=== PATIENT | male | born 1940 | race Caucasian/White ===

== ENCOUNTER 2022-07-08 11:58 | Day surgery (SDC) | payer MEDICARE, OTHER ==
[2022-07-04 15:13] LABS: BASOPHILS # (AUTO) 0.1 X10'3 (0-0.2); BASOPHILS % (AUTO) 1.3 % (0-1); EOSINOPHILS # (AUTO) 0.3 X10'3 (0-0.9); EOSINOPHILS % (AUTO) 4.2 % (0-6); LYMPHOCYTES # (AUTO) 1.3 X10'3 (1.1-4.8); LYMPHOCYTES % (AUTO) 15.6 % (21-51); MEAN CORPUSCULAR HEMOGLOBIN 29.2 PG (27.0-31.0); MEAN CORPUSCULAR HGB CONC 32.8 g/dL (33.0-36.5); MEAN CORPUSCULAR VOLUME 89.1 FL (78-98); MEAN PLATELET VOLUME 6.3 FL (7.4-10.4); MONOCYTES # (AUTO) 0.8 X10'3 (0-0.9); MONOCYTES % (AUTO) 10.2 % (2-12); NEUTROPHILS # (AUTO) 5.7 X10'3 (1.8-7.7); NEUTROPHILS % (AUTO) 68.7 % (42-75); PRE OP HEMATOCRIT 33.8 % (42.0-52.0); PRE OP HEMOGLOBIN 11.1 g/dL (14.0-17.9); PRE OP PLATELET COUNT 242 X10'3 (140-440); RED CELL DISTRIBUTION WIDTH 16.6 % (11.5-14.5)
[2022-07-04 15:22] LABS: ALBUMIN 2.8 G/DL (3.4-5.0); ALBUMIN/GLOBULIN RATIO 0.8 (1.1-1.5); ALKALINE PHOSPHATASE 79 IU/L (46-116); BLOOD UREA NITROGEN 11 MG/DL (7-18); BUN/CREATININE RATIO 11.5 (5.4-32.0); CALCIUM 8.3 MG/DL (8.5-10.1); CHLORIDE 106 MMOL/L (99-107); CREATININE 0.96 MG/DL (0.60-1.10); PRE OP ALT 22 U/L (30-65); PRE OP ANION GAP 7 (8-16); PRE OP AST 19 U/L (10-37); PRE OP BILIRUB, TOTAL 0.2 MG/DL (0.0-1.0); PRE OP GLUCOSE 130 MG/DL (70-104); PRE OP SODIUM 139 MMOL/L (135-145); TOTAL CARBON DIOXIDE 25.8 MMOL/L (24-32); TOTAL PROTEIN 6.4 G/DL (6.4-8.2); eGFR 76 ML/MIN
[~2022-07-08] VITALS: Ht 170.2 cm; Wt 78.0 kg
[2022-07-08] VITALS (9 sets, daily range): BP systolic 111–127; BP diastolic 53–67
[~2022-07-08 11:58] MED LIST: ASPI-1071 PO; BACL-11 PO; CLOP75TA33 PO; DOCUMENT DATE & TIME OF BETA-BLOCKER PO ONE; EZET10TA6 PO; HYDR-3972 PO; LISI5TAB22 PO; METO-395 PO; PRAV40TA3 PO; RIVA10TA PO; famotidine 20mg tablet PO ONE; ringers solution, lacted 1,000 ML IV SCH; vancomycin 1,500 MG in NS 300ml IV soln IV ONE
[2022-07-08] MEDS ORDERED: cloNIDine hcl/PF 100mcg/ml inj ONE (14:57)
[2022-07-08] MEDS ORDERED: FENTANYL CITRATE/PF 50 MCG/1 ML VIAL ONE (15:42)
[2022-07-08] MEDS ORDERED: midazolam 1 mg/ML 2ml injection ONE (15:42)
[2022-07-08] MEDS ORDERED: sevoflurane 250ml liquid IH ONE (15:44)
[2022-07-08] MEDS ORDERED: dexamethasone sod phosphate 10mg/ml inj ONE (15:44)
[2022-07-08] MEDS ORDERED: proCHLORperazine 10 MG/2 ml inj IV PRN (15:50)
[2022-07-08] MEDS ORDERED: meperidine/PF 25mg/ml syringe IV PRN ×3 (15:50)
[2022-07-08] MEDS ORDERED: ringers solution, lacted 1,000 ML IV SCH (15:50)
[2022-07-08] MEDS ORDERED: morphine 4 MG/ML inj SYRINge IV PRN (15:50)
[2022-07-08] MEDS ORDERED: hydrALAZINE 20mg/ml inj. IV PRN (15:50)
[2022-07-08] MEDS ORDERED: ondansetron/PF 4mg/2ml inj IV PRN (15:50)
[2022-07-08] MEDS ORDERED: acetaminophen 1,000mg/100ml IV 100 ML IV PRN (15:50)
[2022-07-08] MEDS ORDERED: morphine 2 MG/ML inj. syringe IV PRN (15:50)
[2022-07-08] MEDS ORDERED: labetalol 20mg/4ml (5mg/ml) syringe IV PRN (15:50)
[2022-07-08] MEDS ORDERED: vancomycin 1,000mg inj ONE (16:09)
[2022-07-08] MEDS ORDERED: propofol inj 20 ML IV ONE (16:10)
[2022-07-08] MEDS ORDERED: ePHEDrine 50MG/ML INJ. ONE (16:10)
[2022-07-08] MEDS ORDERED: LIDOcaine 1%/PF 5ML 10 MG/ML VIAL ONE (16:10)
[2022-07-08] MEDS ORDERED: 0.9 % SODIUM CHLORIDE 10 ML VIAL ONE (16:10)
[2022-07-08] MEDS ORDERED: ROPIVAcaine 0.5% (5mg/ml) 30ml vial ONE (16:10)
[2022-07-08] MEDS ORDERED: ondansetron/PF 4mg/2ml inj ONE (16:11)
--- NOTE | 2022-07-08 16:30 | NUR ---
Received from OR via [facility], accompanied by Anesthesiologist and report given by NICOL Anesthesiologist. PATIENT STILL UNCONSCIOUS WITH ORAL AIRWAY , NO S/S OF PAIN, V/S WNL, 20G TO RIGHT WRIST, RIGHT FOOT LYLY WRAP DRESSING C/D/I. Addendum: 07/08/22 at 1701 by Claudio Mathews RN Amended: Links added.
--- NOTE | 2022-07-08 17:45 | NUR ---
ALL DISCHARGE CRITERIA HAS BEEN MET. VSS, PAIN AT A TOLERABLE LEVEL, ABLE TO SAFELY AMBULATE AND TRANSFER SELF. IV TAKEN OUT WITHOUT ANY COMPLICATIONS. ALL DISCHARGE INSTRUCTIONS COVERED WITH PATIENT AND ALL QUESTIONS ANSWERED. PATIENT TAKEN OUT VIA WHEELCHAIR WITH ALL BELONGINGS TO PERSONAL VEHICLE WHERE FAMILY DROVE PATIENT HOME. Addendum: 07/08/22 at 1803 by Claudio Mathews RN Amended: Links added.
== END 2022-07-08 17:45 | disposition home or self-care (01) ==
LOC: PAS 11:58
PROVIDERS: ATTEND Orthopaedic Surgery Orthopaedic Trauma
DX: M86.8X7 Other osteomyelitis, ankle and foot (principal); I10 Essential (primary) hypertension; F17.210 Nicotine dependence, cigarettes, uncomplicated; Z85.51 Personal history of malignant neoplasm of bladder; Z98.890 Other specified postprocedural states; Z79.899 Other long term (current) drug therapy
CPT/HCPCS: 28150; 36415; 80053; 82948; 85025; 93005; A6222; J0735; J1100; J2250; J2405; J2704; J2795; J3010; J3370; J3490; J7030; J7040; J7120; Z7506; Z7512; A4618; A6449; A7000

== ENCOUNTER 2022-08-01 18:06 | Emergency (ER) | payer MEDICARE, OTHER ==
[~2022-08-01] VITALS: Ht 170.2 cm; Wt 72.7 kg
[~2022-08-01 18:06] MED LIST changes: -DOCUMENT DATE & TIME OF BETA-BLOCKER PO ONE; -famotidine 20mg tablet PO ONE; -ringers solution, lacted 1,000 ML IV SCH; -vancomycin 1,500 MG in NS 300ml IV soln IV ONE
[2022-08-01] MEDS ORDERED: ondansetron/PF 4mg/2ml inj IV ONE (22:35)
[2022-08-01] MEDS ORDERED: acetaminophen 325mg tablet PO ONE (22:50)
[2022-08-01] MEDS ORDERED: morphine 4 MG/ML inj SYRINge IV ONE (22:50)
[2022-08-01 23:19] LABS: BASOPHILS % (AUTO) 1.1 % (0-1); EOSINOPHILS % (AUTO) 0.8 % (0-6); HEMATOCRIT 39.9 % (42.0-52.0); HEMOGLOBIN 12.8 g/dl (14.0-17.9); LYMPHOCYTES # (AUTO) 0.9 X10'3 (1.1-4.8); LYMPHOCYTES % (AUTO) 21.9 % (21-51); MEAN CORPUSCULAR HEMOGLOBIN 27.1 PG (27.0-31.0); MEAN CORPUSCULAR HGB CONC 32.1 g/dL (33.0-36.5); MEAN CORPUSCULAR VOLUME 84.4 FL (78-98); MEAN PLATELET VOLUME 7.1 FL (7.4-10.4); MONOCYTES # (AUTO) 0.6 X10'3 (0-0.9); MONOCYTES % (AUTO) 15.6 % (2-12); NEUTROPHILS # (AUTO) 2.5 X10'3 (1.8-7.7); NEUTROPHILS % (AUTO) 60.6 % (42-75); PLATELET COUNT 214 X10'3 (140-440); RED BLOOD COUNT 4.73 X10'6 (4.70-6.10); RED CELL DISTRIBUTION WIDTH 17.5 % (11.5-14.5); WHITE BLOOD COUNT 4.1 X10'3 (4.5-11.0)
[2022-08-01 23:34] LABS: CLARITY,URINE CLEAR (Clear); COLOR,URINE YELLOW (Yellow); GLUCOSE, URINE NEGATIVE (Neg); KETONES,URINE 15 mg/dl (Neg); LEUKOCYTE ESTERASE ,URINE NEGATIVE (Neg); NITRITES, URINE NEGATIVE (Neg); OCCULT BLOOD,URINE NEGATIVE (Neg); PH,URINE 5.5 (4.8-8.0); PROTEIN,URINE NEGATIVE (Neg); UROBILINOGEN,URINE 0.2 E.U/dL (0.2-1.0)
[2022-08-01 23:42] LABS: ALANINE AMINOTRANSFERASE 23 U/L (12-78); ALBUMIN/GLOBULIN RATIO 0.9 (1.1-1.5); ALKALINE PHOSPHATASE 65 IU/L (46-116); ANION GAP 9 (8-16); ASPARTATE AMINO TRANSFERASE 21 U/L (10-37); BILIRUBIN,TOTAL 0.3 MG/DL (0.1-1.0); BLOOD UREA NITROGEN 10 MG/DL (7-18); BUN/CREATININE RATIO 11.1 (5.4-32.0); CALCIUM 8.5 MG/DL (8.5-10.1); CHLORIDE 102 MMOL/L (99-107); CREATINE KINASE 29 U/L (39-308); GLUCOSE 97 MG/DL (70-104); POTASSIUM 3.5 MMOL/L (3.5-5.1); SODIUM 135 MMOL/L (135-145); TOTAL CARBON DIOXIDE 24.3 MMOL/L (24-32); TOTAL PROTEIN 6.5 G/DL (6.4-8.2); eGFR 81 ML/MIN
[2022-08-01 23:46] LABS: UA COLLECTION TYPE CLN CATCH MIDSTREAM
[2022-08-02] MEDS ORDERED: ONDA4TAB12 PO (00:25)
[2022-08-02 00:51] VITALS: BP 115/56
[2022-08-02 02:41] LABS: TOTAL CELLS COUNTED 100
[2022-08-02 03:21] LABS: PLATELET ESTIMATE NORMAL
[2022-08-02 03:22] LABS: ANISOCYTOSIS 1+; LARGE PLATELETS FEW
== END 2022-08-02 00:54 | disposition home or self-care (01) ==
LOC: ER 18:08
DX: G89.18 Other acute postprocedural pain (principal); R11.2 Nausea with vomiting, unspecified; I11.9 Hypertensive heart disease without heart failure; G89.29 Other chronic pain; M54.9 Dorsalgia, unspecified; Z79.1 Long term (current) use of non-steroidal anti-inflammatories (NSAID); Z79.2 Long term (current) use of antibiotics
CPT/HCPCS: 36415; 80053; 81003; 82550; 83605; 83735; 84145; 85007; 85025; 85651; 87040; 96374; 96375; 99284; J2270; J2405